=== PATIENT | female | born 2000 | race African-American/Black ===

== ENCOUNTER 2021-04-20 12:55 | Emergency (ER) | payer OTHER, SELFPAY ==
[2021-04-20 13:20] VITALS: BP 110/62; PULSE 76; RESP 18; TEMP 36.9; O2SAT 100
== END 2021-04-20 14:34 | disposition left against medical advice (07) ==
LOC: EXPBETH 13:00
PROVIDERS: Emergency Provider Nurse Practitioner
DX: Z53.21 Procedure and treatment not carried out due to patient leaving prior to being seen by health care provider (principal)
CPT/HCPCS: 99199